=== PATIENT | female | born 1955 | race Caucasian/White ===

== ENCOUNTER 2020-12-18 09:00 | Day surgery (SDC) | payer BC, OTHER ==
[~2020-12-18 09:00] MED LIST: Midazolam 1 MG/ML 2 ML SDV ONE; Propofol 200 MG/20 ML SDV ONE; fentaNYL 100 MCG/2 ML SDV ONE
[2020-12-18] MEDS ORDERED: Sodium Chloride 0.9% 1,000 ML IV SCH (09:30)
--- NOTE | 2020-12-18 11:37 | OR ---
DATE OF PROCEDURE: 12/18/2020 SURGEON: Jovanny Hoover MD PROCEDURES: 1. Esophagogastroduodenoscopy. 2. Colonoscopy. FINDINGS: 1. No etiology for anemia. 2. Hiatal hernia, 4 cm. 3. Mild external hemorrhoids. COMPLICATIONS: None. HEALTHCARE NETWORK CONSULTANT: None. ANESTHESIA: MAC. PREOPERATIVE DIAGNOSIS: Anemia. POSTOPERATIVE DIAGNOSIS: Anemia. RISKS: Risks, benefits, alternatives, and limitations including, but not limited to infection, bleeding, perforation, false positives, false negatives were explained to the patient and she wished to proceed. PROCEDURE IN DETAIL: The patient was placed in left lateral decubitus position. The EGD scope was introduced and advanced atraumatically to the second part of the duodenum. No evidence of duodenitis or ulceration was noted. The patient was noted to have a 4 cm hiatal hernia. No abnormalities with respect to gastritis or ulceration. GE junction was normal. Digital rectal exam was performed which showed mild external hemorrhoids. The scope was introduced and advanced atraumatically to the ileocecal valve. A photo was taken of this. Scope was brought back to the ascending, transverse, descending colon, and retroflexed. No evidence of old or new blood. No masses. No colitis. The patient tolerated the procedure well. Jovanny Hoover MD /[id number]
[2020-12-18 11:41] VITALS: BP 115/68; PULSE 69
== END 2020-12-18 11:40 | disposition home or self-care (01) ==
LOC: JP.SDS 09:00
PROVIDERS: ATTEND Surgery
DX: D64.9 Anemia, unspecified (principal); K44.9 Diaphragmatic hernia without obstruction or gangrene; K64.4 Residual hemorrhoidal skin tags; E66.9 Obesity, unspecified; Z86.010 Personal history of colon polyps; Z68.30 Body mass index [BMI] 30.0-30.9, adult
CPT/HCPCS: 43235; 45378; J2250; J2704; J3010; J7030